=== PATIENT | male | born 1950 | race Caucasian/White ===

== ENCOUNTER 2018-08-03 11:53 | Outpatient (CLI) | payer MEDICARE, BC ==
[2018-08-03] VITALS (19 sets, daily range): BP systolic 111–136; BP diastolic 74–95
== END 2018-08-03 23:59 | disposition home or self-care (01) ==
LOC: CARD DIAG 11:53
PROVIDERS: ATTEND Internal Medicine Interventional Cardiology
DX: R42 Dizziness and giddiness (principal); Z87.891 Personal history of nicotine dependence
CPT/HCPCS: 93660

== ENCOUNTER 2022-11-21 07:54 | Day surgery (SDC) | payer MEDICARE ==
[~2022-11-21] VITALS: Ht 167.6 cm; Wt 86.4 kg
[2022-11-21 08:06] VITALS: BP 148/79
[2022-11-21] MEDS ORDERED: ASPI-1071 PO (08:14)
[2022-11-21] MEDS ORDERED: CALC-801 PO (08:14)
[2022-11-21] MEDS ORDERED: FINA5TAB11 PO (08:14)
[2022-11-21] MEDS ORDERED: ATOR40TA PO (08:14)
[2022-11-21] MEDS ORDERED: MIDAZolam 1 MG/ML 5ML VIAL ONE (09:05)
[2022-11-21] MEDS ORDERED: fentaNYL/PF 50MCG/1 ML 2ML syringe ONE (09:05)
[2022-11-21] MEDS ORDERED: LIDOcaine Viscous 15ml cup ONE (09:05)
[2022-11-21 10:00] VITALS: BP 115/77
[2022-11-21 10:10] VITALS: BP 148/79
[2022-11-21 10:20] VITALS: BP 116/71
== END 2022-11-21 10:40 | disposition home or self-care (01) ==
LOC: GI LAB 07:54
PROVIDERS: ATTEND Internal Medicine Gastroenterology
DX: R19.5 Other fecal abnormalities (principal); D12.4 Benign neoplasm of descending colon; K29.50 Unspecified chronic gastritis without bleeding; K31.7 Polyp of stomach and duodenum; K21.9 Gastro-esophageal reflux disease without esophagitis; K64.1 Second degree hemorrhoids; K63.89 Other specified diseases of intestine; Z98.890 Other specified postprocedural states; Z95.1 Presence of aortocoronary bypass graft; Z79.82 Long term (current) use of aspirin; Z87.891 Personal history of nicotine dependence
CPT/HCPCS: 43239; 45380; 45385; 99153; G0500; J2250; J3010; J7030; Z7512; 88305; 99152; A4620; C1889

== ENCOUNTER 2024-01-27 09:47 | Outpatient (CLI) | payer MEDICARE ==
[~2024-01-27 09:47] MED LIST: ASPI-1071 PO; ATOR40TA PO; CALC-801 PO; FINA5TAB11 PO
== END 2024-01-27 23:59 | disposition home or self-care (01) ==
LOC: MRI 09:47
PROVIDERS: ATTEND Podiatrist Foot & Ankle Surgery
DX: M65.871 Other synovitis and tenosynovitis, right ankle and foot (principal); M77.31 Calcaneal spur, right foot; M79.671 Pain in right foot; M72.2 Plantar fascial fibromatosis; M21.6X1 Other acquired deformities of right foot; M25.374 Other instability, right foot
CPT/HCPCS: 73721